=== PATIENT | female | born 1985 | race Caucasian/White ===

== ENCOUNTER 2019-11-16 10:08 | Emergency (ER) | payer OTHER ==
[~2019-11-16] VITALS: Ht 165.1 cm; Wt 87.0 kg
[2019-11-16 10:22] VITALS: BP 132/84
[2019-11-16] MEDS ORDERED: [UNRECOGNIZED DRUG - OTHER] PO (10:22)
== END 2019-11-16 11:58 | disposition home or self-care (01) ==
LOC: EMS 10:10
DX: Z11.1 Encounter for screening for respiratory tuberculosis (principal); G43.909 Migraine, unspecified, not intractable, without status migrainosus
CPT/HCPCS: 71045-TC